=== PATIENT | male | born 1980 | race Asian ===

== ENCOUNTER 2024-01-01 11:42 | Day surgery (SDC) | payer OTHER ==
[~2024-01-01] VITALS: Ht 170.2 cm; Wt 99.8 kg
[2024-01-01] MEDS ORDERED: MEPERIDINE 100 MG INJ. 100 MG/ML VIAL ONE ×3 (12:37→13:23)
[2024-01-01] MEDS ORDERED: MIDAZOLAM HCL 5 MG/5 ML VIAL ONE ×2 (12:37→13:23)
[2024-01-01 13:18] VITALS: O2SAT 96
[2024-01-01 16:26] VITALS: BP_SYST 98; PULSE 60; RESP 18
== END 2024-01-01 14:32 | disposition home or self-care (01) ==
LOC: SDS 11:42 → SMU 11:43 → SDS 14:32
PROVIDERS: ATTEND Student in an Organized Health Care Education/Training Program
DX: Z12.11 Encounter for screening for malignant neoplasm of colon (principal); D12.4 Benign neoplasm of descending colon; D12.5 Benign neoplasm of sigmoid colon; D12.8 Benign neoplasm of rectum; K57.30 Diverticulosis of large intestine without perforation or abscess without bleeding; K64.8 Other hemorrhoids; K64.4 Residual hemorrhoidal skin tags; I10 Essential (primary) hypertension; E78.5 Hyperlipidemia, unspecified; F17.210 Nicotine dependence, cigarettes, uncomplicated; Z79.899 Other long term (current) drug therapy; Z98.890 Other specified postprocedural states
CPT/HCPCS: 45385; 99152; 88305; 99153; G0378; J2250; J2175